=== PATIENT | male | born 1970 | race Two or more races ===

== ENCOUNTER 2019-04-28 15:17 | Inpatient (IN) | payer MEDICAID, OTHER ==
[~2019-04-28] VITALS: Ht 177.8 cm; Wt 96.9 kg
[2019-04-28] MEDS ORDERED: SODIUM CHLORIDE 0.9% 1,000 ML IV ONE (16:15)
[2019-04-28] MEDS ORDERED: HYDROmorphone HCL 2 MG/ML VL IV ONE (16:15)
[2019-04-28] MEDS ORDERED: PROMETHAZINE HCL 25 MG/ML 1ML IV PRN ×2 (16:15→18:00)
[2019-04-28 16:38] LABS: Eosinophils # (auto) 0.1 10 ^3/uL (0-0.8); Hemoglobin 15.9 g/dL (13.5-17.5); Lymphocytes # (auto) 3.6 10 ^3/uL (0.4-5.4); Monocytes # (auto) 1.1 10 ^3/uL (0-1.3); Neutrophils # (auto) 9.7 10 ^3/uL (1.6-8.6); Neutrophils % (auto) 66.7 % (37.0-80.0)
[2019-04-28 16:43] LABS: Basophils # (auto) 0 10 ^3/uL (0-0.2); Basophils % (auto) 0.3 % (0.0-2.0); Eosinophils % (auto) 0.8 % (0.0-7.0); Hematocrit 45.6 % (41.0-53.0); Lymphocytes % (auto) 24.6 % (10.0-50.0); Mean Corpuscular Hemoglobin 31.1 pg (28.0-32.0); Mean Corpuscular Hgb Conc. 34.9 g/dL (32.0-36.0); Mean Corpuscular Volume 89.1 fL (80.0-100.0); Monocytes % (auto) 7.6 % (0.0-12.0); Nucleated Red Blood Cells % 0.2 %; Platelet Count (auto) 186 10^3/uL (140-450); Red Blood Cells 5.12 10^6/uL (4.5-5.90); White Blood Cell 14.5 10^3/uL (4.4-10.8)
[2019-04-28 16:54] LABS: Albumin 3.5 g/dL (3.4-5.0); BUN/Creatinine Ratio 11.1; Calcium 8.2 mg/dL (8.5-10.1); Magnesium 2.1 mg/dL (1.6-2.6); Potassium 3.6 mmol/L (3.5-5.1)
[2019-04-28 16:57] LABS: Bilirubin, Total 0.8 mg/dL (0.2-1.0); Total Protein 8.3 g/dL (6.4-8.2)
[2019-04-28] MEDS ORDERED: cefTRIAXone 1GM/50ML D5W 50 ML IV ONE ×2 (17:15→18:00)
[2019-04-28] MEDS ORDERED: metroNIDAZOLE 500MG/100ML 100 ML IV ONE (17:15)
[2019-04-28] MEDS ORDERED: MORPHINE SULF INJ 2 MG/ML SYRINGE 1ML IV PRN ×3 (18:00)
[2019-04-28] MEDS ORDERED: NITROGLYCERIN 0.4 MG SL TAB SL PRN (18:00)
[2019-04-28] MEDS ORDERED: MILK OF MAGNESIA 30ML SUSP PO PRN (18:00)
[2019-04-28] MEDS: SODIUM CHLORIDE 0.9% 1,000 ML IV SCH (18:11)
[2019-04-28 19:02] LABS: Partial Thromboplastin Time 29.1 sec (23.64-32.05)
[2019-04-28 19:07] LABS: CRP High Sensitivity 8.33 mg/dL (< 0.3)
[2019-04-28] MEDS ORDERED: LIDOCAINE 1% (LOCAL ANESTH.) PF 5ml SDV ONE (19:41)
[2019-04-28] MEDS ORDERED: SUCCINYLCHOLINE CHLORIDE 20 MG/ML 10ML VIAL IV ONE (19:43)
[2019-04-28] MEDS ORDERED: MIDAZOLAM HCL 1MG/1ML-2 ML VIAL ONE (19:44)
[2019-04-28] MEDS ORDERED: PROPOFOL 10 MG/ML 20 ML IV ONE (19:44)
[2019-04-28] MEDS ORDERED: fentaNYL CITRATE 100 MCG/2 ML VL ONE (20:01)
[2019-04-28] MEDS ORDERED: NALOXONE HCL 0.4 MG/ML VIAL IV PRN (20:15)
[2019-04-28] MEDS ORDERED: HYDROmorphone HCL 2 MG/ML VL IV PRN (20:15)
[2019-04-28] MEDS ORDERED: ONDANSETRON HCL 4 MG/2 ML VIAL IV PRN (20:15)
[2019-04-28] MEDS ORDERED: hydrALAZINE HCL 20 MG/ML VL ONE (20:19)
[2019-04-28] MEDS ORDERED: NEOSTIGMINE 1 MG/ML INJ (10mg/10ML VIAL) ONE (21:30)
[2019-04-28] MEDS ORDERED: GLYCOPYRROLATE 0.2 MG/ML 1ML VIAL ONE (21:30)
[2019-04-28] MEDS: HYDROmorphone HCL 2 MG/ML VL IV PRN ×2 (22:05→22:21)
--- NOTE | 2019-04-28 22:46 | NUR ---
Telemetry admit from NATHANIEL ALCALA admitted to Telemetry unit after SBAR received. Patient oriented to Narcisa Menendez, primary RN, unit, room, bed, and unit policies regarding patient care and visiting hours. Patient now on continuous telemetry monitoring, tele box #63 and telemetry reading on arrival to unit is SR 80S. Patient placed on bedside oxygen, weighed by bed scale and encouraged to call if they need something. All questions and concerns addressed, patient verbalized understanding.
[2019-04-28 23:20] VITALS: BP 146/83
[2019-04-29] MEDS: metroNIDAZOLE 500MG/100ML 100 ML IV SCH ×4 (00:07→22:16)
[2019-04-29] MEDS: FAMOTIDINE 20 MG TAB PO SCH ×3 (00:08→22:16)
[2019-04-29] MEDS: SODIUM CHLORIDE 0.9% 1,000 ML IV SCH (00:08)
[2019-04-29] MEDS ORDERED: IBUP800T24 PO (01:21)
--- NOTE | 2019-04-29 02:56 | NUR ---
PATIENT REPORTING PAIN 7/10 PATIENT STATING PAIN 7/10 FOR ABDOMINAL PAIN MORPHINE GIVEN, WILL REASSESS IN 30MIN.
[2019-04-29 05:09] VITALS: BP 156/85
[2019-04-29 06:00] LABS: Basophils # (auto) 0.1 10 ^3/uL (0-0.2); Basophils % (auto) 0.8 % (0.0-2.0); Eosinophils # (auto) 0 10 ^3/uL (0-0.8); Hematocrit 43.3 % (41.0-53.0); Lymphocytes # (auto) 2.1 10 ^3/uL (0.4-5.4); Lymphocytes % (auto) 14.4 % (10.0-50.0); Mean Corpuscular Hgb Conc. 34.6 g/dL (32.0-36.0); Mean Corpuscular Volume 89.5 fL (80.0-100.0); Monocytes # (auto) 1.3 10 ^3/uL (0-1.3); Neutrophils # (auto) 10.8 10 ^3/uL (1.6-8.6); Neutrophils % (auto) 75.8 % (37.0-80.0); Nucleated Red Blood Cells % 0.1 %; Platelet Count (auto) 204 10^3/uL (140-450); Red Blood Cells 4.83 10^6/uL (4.5-5.90); Red Cell Distribution Width 13.1 % (11.8-14.3); White Blood Cell 14.3 10^3/uL (4.4-10.8)
[2019-04-29 08:00] VITALS: BP 155/96
--- NOTE | 2019-04-29 08:27 | NUR ---
Spoke with Dr. Mccormick regarding patients status and gave him patients Deonna's phone number so he can update her on patients condition.
[2019-04-29 09:00] VITALS: BP 155/96
[2019-04-29] MEDS: cefTRIAXone 1GM/50ML D5W 50 ML IV SCH (10:42)
[2019-04-29] MEDS: ENOXAPARIN SOD 40 MG/0.4 ML SYRINGE SC SCH (10:43)
[2019-04-29 13:00] VITALS: BP 160/99
[2019-04-29] MEDS: HYDROmorphone HCL 2 MG/ML VL IV PRN ×2 (13:54→21:31)
--- NOTE | 2019-04-29 14:20 | NUR ---
Dr. Mccormick at bedside to discuss patients plan of care and the findings of the small bowel resection.
[2019-04-29] MEDS ORDERED: ROCURONIUM 10MG/ML 10ML VIAL IV ONE (15:21)
[2019-04-29] MEDS: D5W/SOD CHL 0.45%/KCL 20MEQ 1,000 ML IV SCH (15:36)
[2019-04-29 17:00] VITALS: BP 156/93
--- NOTE | 2019-04-29 20:30 | NUR ---
open note assumed care of pt. upon entering room pt awake and alert on room air no distress noted or expressed. pt updated on plan of care. pt concerns addressed to this point. pt c/o not being repositioned, this nurse asked pt if he was able to move, pt may have been confused that he was not supposed to move, this nurse encouraged pt to reposition via shifting weight on bottom as needed and tolerated, whilst avoiding any movement that may compromise integrity of incision to midsection. this nurse inspecting incision site, abdominal binder in place, dressing is intact, with previous drainage circled on dressing, with no new drainage noted. binder was then placed back and pt assisted to sit at bedside, no complaint of dizziness, pt then ambulated 10 feet and back and stood for 2 minutes unassisted and tolerated well. pt assisted back into bed, dressing remained as previously mentioned. call light in reach. waters in place, secured, below the waist and draining clear yellow. this nurse to round q1hr and prn.
[2019-04-29 22:00] VITALS: BP 133/82
[2019-04-30] MEDS: D5W/SOD CHL 0.45%/KCL 20MEQ 1,000 ML IV SCH (04:20)
[2019-04-30 05:00] VITALS: BP 155/102
[2019-04-30] MEDS: HYDROmorphone HCL 2 MG/ML VL IV PRN (05:51)
[2019-04-30] MEDS: metroNIDAZOLE 500MG/100ML 100 ML IV SCH ×3 (06:06→21:51)
[2019-04-30 06:34] LABS: Basophils # (auto) 0 10 ^3/uL (0-0.2); Basophils % (auto) 0.4 % (0.0-2.0); Eosinophils # (auto) 0 10 ^3/uL (0-0.8); Eosinophils % (auto) 0.3 % (0.0-7.0); Hematocrit 44.7 % (41.0-53.0); Hemoglobin 15.3 g/dL (13.5-17.5); Lymphocytes # (auto) 2.7 10 ^3/uL (0.4-5.4); Lymphocytes % (auto) 23.4 % (10.0-50.0); Mean Corpuscular Hemoglobin 30.7 pg (28.0-32.0); Mean Corpuscular Hgb Conc. 34.2 g/dL (32.0-36.0); Mean Corpuscular Volume 89.9 fL (80.0-100.0); Monocytes # (auto) 0.9 10 ^3/uL (0-1.3); Neutrophils # (auto) 7.9 10 ^3/uL (1.6-8.6); Neutrophils % (auto) 67.9 % (37.0-80.0); Nucleated Red Blood Cells % 0.1 %; Platelet Count (auto) 240 10^3/uL (140-450); Red Blood Cells 4.97 10^6/uL (4.5-5.90); White Blood Cell 11.6 10^3/uL (4.4-10.8)
[2019-04-30 06:52] LABS: Potassium 3.7 mmol/L (3.5-5.1)
[2019-04-30 06:57] LABS: BUN/Creatinine Ratio 13.3; Calcium 8.5 mg/dL (8.5-10.1)
[2019-04-30 08:00] VITALS: BP 128/82
[2019-04-30] MEDS: cefTRIAXone 1GM/50ML D5W 50 ML IV SCH (09:26)
[2019-04-30] MEDS: FAMOTIDINE 20 MG TAB PO SCH ×2 (09:26→21:51)
[2019-04-30] MEDS: ENOXAPARIN SOD 40 MG/0.4 ML SYRINGE SC SCH (09:27)
[2019-04-30 12:00] VITALS: BP 121/92
[2019-04-30] MEDS: SOD CHL 0.9%/ KCL 20MEQ 1,000 ML IV SCH (13:00)
--- NOTE | 2019-04-30 14:54 | NUR ---
NEWBY CATHETER REMOVED PER DR LIMA ORDER
[2019-04-30 17:00] VITALS: BP 140/84
--- NOTE | 2019-04-30 20:15 | NUR ---
open note assumed care of pt. upon entering room pt out of bed ambulating around room. pt on room air no distress noted or expressed. pt denies any pain. pt updated on plan of care, all concerns addressed to this point. pt has binder around abdomen, underneath dressing is intact, with no new drainage noted. pt given incentive spirometer along with hands on instruction on how to use and how often, pt voiced understanding and was able to return demo. pt reports having urinated multiple times since waters removal. pt bed locked, low and 2x rails up. pt call light in reach, encouraged to call as needed. this nurse to round q1hr and prn.
[2019-04-30 22:00] VITALS: BP 136/90
[2019-04-30] MEDS: TEMAZEPAM 15 MG CAP PO PRN (23:44)
[2019-05-01] MEDS: SOD CHL 0.9%/ KCL 20MEQ 1,000 ML IV SCH ×2 (03:01→15:40)
[2019-05-01 05:00] VITALS: BP 147/98
[2019-05-01 05:55] LABS: Basophils # (auto) 0.1 10 ^3/uL (0-0.2); Basophils % (auto) 0.8 % (0.0-2.0); Eosinophils # (auto) 0.2 10 ^3/uL (0-0.8); Eosinophils % (auto) 1.7 % (0.0-7.0); Hematocrit 43.8 % (41.0-53.0); Hemoglobin 15.3 g/dL (13.5-17.5); Lymphocytes # (auto) 2.8 10 ^3/uL (0.4-5.4); Mean Corpuscular Hemoglobin 31.5 pg (28.0-32.0); Mean Corpuscular Hgb Conc. 34.9 g/dL (32.0-36.0); Mean Corpuscular Volume 90.3 fL (80.0-100.0); Monocytes # (auto) 0.9 10 ^3/uL (0-1.3); Monocytes % (auto) 9.3 % (0.0-12.0); Neutrophils # (auto) 5.4 10 ^3/uL (1.6-8.6); Neutrophils % (auto) 58.2 % (37.0-80.0); Platelet Count (auto) 252 10^3/uL (140-450); Red Blood Cells 4.85 10^6/uL (4.5-5.90); Red Cell Distribution Width 12.9 % (11.8-14.3); White Blood Cell 9.3 10^3/uL (4.4-10.8)
[2019-05-01 06:23] LABS: Calcium 8.6 mg/dL (8.5-10.1); Potassium 3.8 mmol/L (3.5-5.1)
[2019-05-01] MEDS: metroNIDAZOLE 500MG/100ML 100 ML IV SCH ×3 (06:26→21:19)
[2019-05-01 08:00] VITALS: BP 133/83
[2019-05-01 08:30] VITALS: BP 133/83
[2019-05-01] MEDS: cefTRIAXone 1GM/50ML D5W 50 ML IV SCH (09:10)
[2019-05-01] MEDS: FAMOTIDINE 20 MG TAB PO SCH ×2 (09:17→21:20)
[2019-05-01] MEDS: ENOXAPARIN SOD 40 MG/0.4 ML SYRINGE SC SCH (09:21)
[2019-05-01 12:00] VITALS: BP 137/87
[2019-05-01 17:00] VITALS: BP 139/96
[2019-05-01] MEDS: TEMAZEPAM 15 MG CAP PO PRN (21:19)
[2019-05-01 22:00] VITALS: BP 146/93
[2019-05-02 05:00] VITALS: BP 130/85
[2019-05-02] MEDS: SOD CHL 0.9%/ KCL 20MEQ 1,000 ML IV SCH ×2 (05:00→18:20)
[2019-05-02] MEDS: metroNIDAZOLE 500MG/100ML 100 ML IV SCH ×3 (05:59→21:39)
[2019-05-02 08:00] VITALS: BP 125/83
[2019-05-02] MEDS: cefTRIAXone 1GM/50ML D5W 50 ML IV SCH (08:13)
[2019-05-02 09:35] VITALS: BP 125/83
[2019-05-02] MEDS: FAMOTIDINE 20 MG TAB PO SCH ×2 (09:45→21:39)
[2019-05-02] MEDS: ENOXAPARIN SOD 40 MG/0.4 ML SYRINGE SC SCH (09:52)
[2019-05-02 12:26] VITALS: BP 138/91
--- NOTE | 2019-05-02 14:19 | NUR ---
assessment Patient is a 48 year old male who is alert and oriented. Patients cognitive abilities are intact. Prior to admission patient lived home with his Rosario and functioned independently. Patient informed me he is able to care for his own ADLs. Per patient he will return home to his prior living arrangements post discharge and his or family will transport him home. Patient informed me he has no PCP that he see's. Patient informed me he has been up ambulating and is doing well. Patient has no safety issues regarding returning home on discharge. Patient has no post discharge needs identified as of now. I informed patient he has a right to speak to a social media senior associate regarding all care. I informed patient he has a right to participate in any and all discharge planning. Patient does not have a POA and advanced directive. I have offered patient information on POA and advanced directives. I informed the patient the advantages and benefits of having an Advanced Directive. Patient verbalized understanding and agreed to discharge plan. Addendum: 05/02/19 at 1426 by Angela GONZALEZ Amended: Links added.
--- NOTE | 2019-05-02 15:09 | NUR ---
Nutrition Assessment Notes Please refer to link for full assessment notes. Est energy needs: 7633-3750 kcals (20-23 kcal/kgBW) Est protein needs: 75-94 gms/day (0.8-1.0 gm/kgBW) Will continue to monitor and reassess prn. Addendum: 05/02/19 at [address] Amended: Links added.
[2019-05-02 17:16] VITALS: BP 128/88
[2019-05-02] MEDS: TEMAZEPAM 15 MG CAP PO PRN (21:51)
[2019-05-02 22:00] VITALS: BP 126/96
--- NOTE | 2019-05-03 01:59 | NUR ---
GAVE REPORT TO NURSE DUARTE TO RESUME CARE OF PATIENT.
[2019-05-03 05:00] VITALS: BP 126/78
[2019-05-03 05:29] LABS: Basophils # (auto) 0.1 10 ^3/uL (0-0.2); Basophils % (auto) 0.5 % (0.0-2.0); Eosinophils # (auto) 0.2 10 ^3/uL (0-0.8); Eosinophils % (auto) 1.6 % (0.0-7.0); Hematocrit 45.1 % (41.0-53.0); Hemoglobin 15.6 g/dL (13.5-17.5); Lymphocytes # (auto) 3.4 10 ^3/uL (0.4-5.4); Lymphocytes % (auto) 35.8 % (10.0-50.0); Mean Corpuscular Hemoglobin 31.2 pg (28.0-32.0); Mean Corpuscular Hgb Conc. 34.6 g/dL (32.0-36.0); Mean Corpuscular Volume 90.2 fL (80.0-100.0); Monocytes # (auto) 0.8 10 ^3/uL (0-1.3); Neutrophils # (auto) 5.1 10 ^3/uL (1.6-8.6); Neutrophils % (auto) 54.1 % (37.0-80.0); Nucleated Red Blood Cells % 0.2 %; Platelet Count (auto) 297 10^3/uL (140-450); Red Cell Distribution Width 12.6 % (11.8-14.3); White Blood Cell 9.5 10^3/uL (4.4-10.8)
[2019-05-03 05:40] LABS: BUN/Creatinine Ratio 17.8; Calcium 8.5 mg/dL (8.5-10.1); Potassium 3.8 mmol/L (3.5-5.1)
[2019-05-03] MEDS: metroNIDAZOLE 500MG/100ML 100 ML IV SCH (05:57)
[2019-05-03] MEDS: SOD CHL 0.9%/ KCL 20MEQ 1,000 ML IV SCH (07:40)
[2019-05-03 08:00] VITALS: BP 120/78
[2019-05-03] MEDS: cefTRIAXone 1GM/50ML D5W 50 ML IV SCH (08:32)
[2019-05-03 08:57] VITALS: BP 120/78
[2019-05-03] MEDS: FAMOTIDINE 20 MG TAB PO SCH (09:04)
[2019-05-03 10:47] VITALS: BP 120/78
--- NOTE | 2019-05-03 11:17 | NUR ---
PATIENT DISCHARGING HOME WITH FAMILY. ALL IV ACCESS DISCONTINUED. TELEMETRY BOX REMOVED AND RETURNED TO TELEMETRY DEPARTMENT LAST NIGHT. ALL DISCHARGE PAPERWORK SIGNED. ALL DISCHARGE INSTRUCTIONS GIVEN.
== END 2019-05-03 12:00 | disposition home or self-care (01) | DRG 710 ==
LOC: ER 15:17 → TELE 15:18 → TELE-WESTW 22:47 → WEST WING 05-03 01:47
PROVIDERS: ADMIT Internal Medicine; ATTEND Internal Medicine
PROC: 0DB80ZZ Excision of Small Intestine, Open Approach (ICD-10-PCS; 2019-04-28)
PROC: 0W9G0ZZ Drainage of Peritoneal Cavity, Open Approach (ICD-10-PCS; principal; 2019-04-28 19:47)
DX: A41.9 Sepsis, unspecified organism (principal); K65.1 Peritoneal abscess; E87.1 Hypo-osmolality and hyponatremia; K57.00 Diverticulitis of small intestine with perforation and abscess without bleeding; R16.0 Hepatomegaly, not elsewhere classified; K76.0 Fatty (change of) liver, not elsewhere classified; D72.829 Elevated white blood cell count, unspecified; K66.0 Peritoneal adhesions (postprocedural) (postinfection); I10 Essential (primary) hypertension
CPT/HCPCS: 36415; 71045; 71046; 74176; 80048; 80053; 82150; 83690; 83735; 84443; 85025; 85610; 85652; 85730; 86141; 86850; 86900; 86901; 93005; 96365; 96368; 96375; G0378; J0330; J0696; J2250; J2704; J3490

== ENCOUNTER 2019-08-11 10:00 | Emergency (ER) | payer SELFPAY ==
[~2019-08-11] VITALS: Ht 177.8 cm; Wt 106.6 kg
[2019-08-11] MEDS ORDERED: FLUORESCEIN SOD 1 MG TEST STRIP LEFTEYE ONE (11:45)
[2019-08-11] MEDS ORDERED: TETRACAINE HCL 0.5% OPTH(EYE) SOLN 4ML LEFTEYE ONE (11:45)
[2019-08-11 12:40] VITALS: BP 158/95
== END 2019-08-11 12:25 | disposition home or self-care (01) ==
LOC: ER 10:00
DX: T15.02XA Foreign body in cornea, left eye, initial encounter (principal); X58.XXXA Exposure to other specified factors, initial encounter; Y93.89 Activity, other specified; Y92.89 Other specified places as the place of occurrence of the external cause; Y99.8 Other external cause status
CPT/HCPCS: 65220

== ENCOUNTER 2022-09-06 18:13 | Emergency (ER) | payer MEDICAID ==
[~2022-09-06] VITALS: Ht 177.8 cm; Wt 95.0 kg
[2022-09-06 18:56] LABS: Basophils # (auto) 0 10 ^3/uL (0-0.2); Basophils % (auto) 0.6 % (0.0-2.0); Eosinophils # (auto) 0.1 10 ^3/uL (0-0.8); Eosinophils % (auto) 1.6 % (0.0-7.0); Hematocrit 46.3 % (41.0-53.0); Hemoglobin 16.2 g/dL (13.5-17.5); Lymphocytes # (auto) 2.3 10 ^3/uL (0.4-5.4); Lymphocytes % (auto) 35.5 % (10.0-50.0); Mean Corpuscular Hemoglobin 31.4 pg (28.0-32.0); Mean Corpuscular Volume 89.8 fL (80.0-100.0); Monocytes # (auto) 0.5 10 ^3/uL (0-1.3); Monocytes % (auto) 8.2 % (0.0-12.0); Neutrophils # (auto) 3.5 10 ^3/uL (1.6-8.6); Neutrophils % (auto) 54.1 % (37.0-80.0); Nucleated Red Blood Cells % 0.1 %; Red Blood Cells 5.16 10^6/uL (4.5-5.90); Red Cell Distribution Width 12.6 % (11.8-14.3); White Blood Cell 6.4 10^3/uL (4.4-10.8)
[2022-09-06 19:10] LABS: INR 1.04 (0.9-1.15); Partial Thromboplastin Time 29.3 SEC (24.5-34.5)
[2022-09-06 19:18] LABS: Albumin 4.3 g/dL (3.4-5.0); Calcium 8.8 mg/dL (8.5-10.1); Magnesium 2.8 mg/dL (1.6-2.6); Potassium 4.3 mmol/L (3.5-5.1)
[2022-09-06 19:35] LABS: BUN/Creatinine Ratio 11.9 (10.0-20.0); Bilirubin, Total 0.4 mg/dL (0.2-1.0)
[2022-09-06 23:31] VITALS: BP 145/83; PULSE 81; RESP 19; TEMP 98.2; O2SAT 94
== END 2022-09-06 23:34 | disposition home or self-care (01) ==
LOC: ER 18:13
DX: R07.89 Other chest pain (principal)
CPT/HCPCS: 36415; 71045; 80053; 83735; 83880; 84484; 85025; 85610; 85730; 93005

== ENCOUNTER 2022-12-15 12:55 | Inpatient (IN) | payer MEDICAID ==
[~2022-12-15] VITALS: Ht 177.8 cm; Wt 98.3 kg
[2022-12-15 13:36] LABS: Basophils # (auto) 0 10 ^3/uL (0-0.2); Basophils % (auto) 0.5 % (0.0-2.0); Eosinophils # (auto) 0.3 10 ^3/uL (0-0.8); Eosinophils % (auto) 2.6 % (0.0-7.0); Hematocrit 45.4 % (41.0-53.0); Hemoglobin 15.7 g/dL (13.5-17.5); Lymphocytes # (auto) 4.4 10 ^3/uL (0.4-5.4); Lymphocytes % (auto) 45.4 % (10.0-50.0); Mean Corpuscular Hemoglobin 30.9 pg (28.0-32.0); Mean Corpuscular Hgb Conc. 34.6 g/dL (32.0-36.0); Mean Corpuscular Volume 89.5 fL (80.0-100.0); Monocytes # (auto) 0.6 10 ^3/uL (0-1.3); Monocytes % (auto) 6.7 % (0.0-12.0); Neutrophils # (auto) 4.3 10 ^3/uL (1.6-8.6); Neutrophils % (auto) 44.8 % (37.0-80.0); Nucleated Red Blood Cells % 0.1 %; Red Blood Cells 5.08 10^6/uL (4.5-5.90); White Blood Cell 9.6 10^3/uL (4.4-10.8)
[2022-12-15 13:53] LABS: Alanine Aminotransferase 39 U/L (7-40); Albumin 4.7 g/dL (3.2-4.8); Alkaline Phosphatase 61 U/L (46-116); Anion Gap 7 (5-15); Aspartate Aminotransferase 23 U/L (13-40); BUN/Creatinine Ratio 9.4 (10.0-20.0); Bilirubin, Total 0.5 mg/dL (0.2-1.0); Blood Urea Nitrogen 10 mg/dL (9-23); Carbon Dioxide 27 mmol/L (20-30); Chloride 102 mmol/L (98-107); Glucose 95 mg/dL (74-106); Potassium 3.8 mmol/L (3.5-5.1); Sodium 136 mmol/L (136-145); Total Protein 7.6 g/dL (5.7-8.2)
[2022-12-15] MEDS ORDERED: ACETAMINOPHEN 325 MG TAB PO PRN (18:15)
[2022-12-15] MEDS ORDERED: MORPHINE SULFATE 4 MG/ML SYR/VIAL IV PRN (18:15)
[2022-12-15] MEDS ORDERED: NITROGLYCERIN 0.4 MG SL TAB SL PRN (18:15)
[2022-12-15] MEDS ORDERED: ONDANSETRON HCL 4 MG/2 ML VIAL IV PRN (18:15)
[2022-12-15 19:24] LABS: INR 1.03 (0.9-1.15); Prothrombin Time 10.8 sec (9.3-11.8)
[2022-12-15] MEDS ORDERED: ENOXAPARIN SOD 100 MG/1 ML SYRINGE SC SCH (22:00)
[2022-12-15 23:27] VITALS: PULSE 79; RESP 18; O2SAT 94
[2022-12-15] MEDS: METOPROLOL TARTRATE 25 MG TAB PO SCH (23:31)
[2022-12-15] MEDS: ATORVASTATIN 20 MG TAB PO SCH (23:32)
[2022-12-16] VITALS (15 sets, daily range): BP systolic 109–133; BP diastolic 60–83; PULSE 56–78; RESP 15–20; TEMP 97.9–98.2; O2SAT 92–96
[2022-12-16 05:35] LABS: Basophils # (auto) 0 10 ^3/uL (0-0.2); Basophils % (auto) 0.5 % (0.0-2.0); Eosinophils # (auto) 0.2 10 ^3/uL (0-0.8); Eosinophils % (auto) 2.4 % (0.0-7.0); Hemoglobin 15.4 g/dL (13.5-17.5); Lymphocytes # (auto) 3.5 10 ^3/uL (0.4-5.4); Mean Corpuscular Hemoglobin 31.6 pg (28.0-32.0); Mean Corpuscular Hgb Conc. 35.1 g/dL (32.0-36.0); Mean Corpuscular Volume 90.1 fL (80.0-100.0); Monocytes # (auto) 0.5 10 ^3/uL (0-1.3); Neutrophils # (auto) 3.6 10 ^3/uL (1.6-8.6); Neutrophils % (auto) 46.1 % (37.0-80.0); Nucleated Red Blood Cells % 0.5 %; Red Blood Cells 4.88 10^6/uL (4.5-5.90); Red Cell Distribution Width 12.8 % (11.8-14.3); White Blood Cell 7.8 10^3/uL (4.4-10.8)
[2022-12-16 05:59] LABS: Alanine Aminotransferase 44 U/L (7-40); Albumin 4.7 g/dL (3.2-4.8); Alkaline Phosphatase 71 U/L (46-116); Anion Gap 9 (5-15); Aspartate Aminotransferase 41 U/L (13-40); BUN/Creatinine Ratio 13.7 (10.0-20.0); Bilirubin, Total 0.4 mg/dL (0.2-1.0); Blood Urea Nitrogen 14 mg/dL (9-23); Calcium 9.4 mg/dL (8.7-10.4); Carbon Dioxide 23 mmol/L (20-30); Chloride 104 mmol/L (98-107); Glucose 154 mg/dL (74-106); Potassium 4.1 mmol/L (3.5-5.1); Sodium 136 mmol/L (136-145); Total Protein 7.3 g/dL (5.7-8.2)
[2022-12-16] MEDS ORDERED: HEPARIN SODIUM (PORCINE) 5000 UNITS/ML 1ML VIAL IV ONE (06:15)
[2022-12-16] MEDS ORDERED: NITROGLYCERIN 50MG/250ML 250 ML IV SCH ×2 (06:15)
[2022-12-16] MEDS ORDERED: HEPARIN DRIP/D5W 100UNITS/ML 250 ML IV SCH ×2 (06:15→15:15)
[2022-12-16] MEDS ORDERED: CLOPIDOGREL 300 MG TAB PO ONE (07:15)
[2022-12-16] MEDS ORDERED: ASPirin 325 MG TAB PO ONE (07:15)
[2022-12-16 07:38] LABS: Alanine Aminotransferase 42 U/L (7-40); Albumin 4.7 g/dL (3.2-4.8); Alkaline Phosphatase 62 U/L (46-116); Anion Gap 8 (5-15); Aspartate Aminotransferase 41 U/L (13-40); BUN/Creatinine Ratio 9.5 (10.0-20.0); Blood Urea Nitrogen 9 mg/dL (9-23); Calcium 9.3 mg/dL (8.5-10.1); Carbon Dioxide 25 mmol/L (20-30); Chloride 105 mmol/L (98-107); Cholesterol 193 mg/dL (< 200); Glucose 118 mg/dL (74-106); HDL Cholesterol 34 mg/dL (40-59); Sodium 138 mmol/L (136-145); Triglycerides 486 mg/dL (< 150)
[2022-12-16 07:39] LABS: Bilirubin, Total 0.4 mg/dL (0.2-1.0); Total Protein 7.6 g/dL (5.7-8.2)
[2022-12-16 08:28] LABS: Magnesium 2.3 mg/dL (1.6-2.6)
[2022-12-16 08:28] LABS: Urine WBC None Seen /hpf (0 - 3)
[2022-12-16 08:43] LABS: Urine Bacteria NONE SEEN /hpf (None Seen); Urine Blood Negative /uL (Negative); Urine Clarity Clear (Clear); Urine Color Colorless (Yellow); Urine Protein, UAD Negative (Negative); Urine Specific Gravity 1.011 (1.001-1.035); Urine Urobilinogen Normal (Negative); Urine pH 6.5 (5.0-8.0)
[2022-12-16] MEDS ORDERED: VERAPAMIL 2.5MG/ML INJ 2ML VIAL IV ONE (09:09)
[2022-12-16] MEDS ORDERED: HEPARIN SODIUM (PORCINE) 5000 UNITS/ML 1ML VIAL ONE (09:09)
[2022-12-16] MEDS ORDERED: ANGIOMAX 250 MG VIAL IV ONE (09:09)
[2022-12-16] MEDS ORDERED: LIDOCAINE 2%HCL (LOCAL ANESTH.) INJ 20ML MDV ONE (09:10)
[2022-12-16] MEDS ORDERED: fentaNYL CITRATE 100 MCG/2 ML VL ONE (09:10)
[2022-12-16] MEDS ORDERED: SODIUM CHL 0.9% 0 ML ONE (09:10)
[2022-12-16] MEDS ORDERED: MIDAZOLAM HCL 2MG/2ML 2ml VIAL (1mg/ml) ONE (09:10)
[2022-12-16] MEDS ORDERED: IODIXANOL 320MG/ML 100ML BTL IV ONE (09:10)
[2022-12-16] MEDS ORDERED: ASPirin 81 mg TAB PO SCH (10:00)
[2022-12-16] MEDS: METOPROLOL TARTRATE 25 MG TAB PO SCH ×2 (10:00→22:02)
[2022-12-16] MEDS ORDERED: SODIUM CHLOR 0.9% PF (SALINE LOCK) 10ML VIAL/SYR IV SCH (14:00)
[2022-12-16] MEDS: SODIUM CHLOR 0.9% PF (SALINE LOCK) 10ML VIAL/SYR IV SCH ×2 (14:00→22:02)
[2022-12-16 14:41] LABS: INR 1.04 (0.9-1.15); Partial Thromboplastin Time 46.4 SEC (24.5-34.5); Prothrombin Time 10.9 sec (9.3-11.8)
[2022-12-16] MEDS: ATORVASTATIN 20 MG TAB PO SCH (22:01)
[2022-12-17 05:00] VITALS: BP 125/89; PULSE 65; RESP 16; TEMP 97.9; O2SAT 95
[2022-12-17] MEDS: SODIUM CHLOR 0.9% PF (SALINE LOCK) 10ML VIAL/SYR IV SCH ×2 (06:06→14:39)
[2022-12-17 06:49] LABS: Basophils # (auto) 0.1 10 ^3/uL (0-0.2); Basophils % (auto) 0.7 % (0.0-2.0); Eosinophils # (auto) 0.3 10 ^3/uL (0-0.8); Eosinophils % (auto) 3.6 % (0.0-7.0); Hemoglobin 15.7 g/dL (13.5-17.5); Lymphocytes # (auto) 2.7 10 ^3/uL (0.4-5.4); Lymphocytes % (auto) 35.4 % (10.0-50.0); Mean Corpuscular Hemoglobin 30.9 pg (28.0-32.0); Mean Corpuscular Hgb Conc. 34.1 g/dL (32.0-36.0); Mean Corpuscular Volume 90.4 fL (80.0-100.0); Monocytes # (auto) 0.6 10 ^3/uL (0-1.3); Monocytes % (auto) 7.3 % (0.0-12.0); Neutrophils # (auto) 4.1 10 ^3/uL (1.6-8.6); Nucleated Red Blood Cells % 0.1 %; Red Blood Cells 5.08 10^6/uL (4.5-5.90); Red Cell Distribution Width 12.9 % (11.8-14.3); White Blood Cell 7.7 10^3/uL (4.4-10.8)
[2022-12-17 06:50] LABS: Chloride 105 mmol/L (98-107); Potassium 4.2 mmol/L (3.5-5.1); Sodium 138 mmol/L (136-145)
[2022-12-17 06:51] LABS: Anion Gap 6 (5-15); Calcium 9.1 mg/dL (8.7-10.4); Carbon Dioxide 27 mmol/L (20-30)
[2022-12-17 06:56] LABS: BUN/Creatinine Ratio 13.3 (10.0-20.0); Blood Urea Nitrogen 14 mg/dL (9-23); Glucose 113 mg/dL (74-106)
[2022-12-17 08:00] VITALS: BP 140/100; PULSE 73; RESP 18; TEMP 98.5; O2SAT 94
[2022-12-17] MEDS: METOPROLOL TARTRATE 25 MG TAB PO SCH (08:25)
[2022-12-17 08:30] VITALS: PULSE 58
[2022-12-17] MEDS ORDERED: CLOPIDOGREL BISULFATE 75 MG TAB PO SCH (10:00)
[2022-12-17] MEDS ORDERED: ASPirin 81 mg TAB PO SCH ×3 (10:00)
[2022-12-17 12:57] VITALS: BP 123/91; PULSE 56; RESP 18; TEMP 98.6; O2SAT 94
[2022-12-17] MEDS ORDERED: METO25TA93 PO (15:11)
[2022-12-17] MEDS ORDERED: CLOP75TA70 PO (15:11)
[2022-12-17 17:00] VITALS: BP 128/88; PULSE 62; RESP 16; TEMP 98.6; O2SAT 95
== END 2022-12-17 18:00 | disposition home or self-care (01) | DRG 190 ==
LOC: ER 12:55 → TELE 18:14 → TELE-WESTW 12-16 15:43
PROVIDERS: ADMIT Nurse Practitioner Family; ATTEND Internal Medicine
PROC: 4A023N7 Measurement of Cardiac Sampling and Pressure, Left Heart, Percutaneous Approach (ICD-10-PCS; principal; 2022-12-16)
PROC: B211YZZ Fluoroscopy of Multiple Coronary Arteries using Other Contrast (ICD-10-PCS; 2022-12-16)
PROC: B215YZZ Fluoroscopy of Left Heart using Other Contrast (ICD-10-PCS; 2022-12-16)
DX: I21.4 Non-ST elevation (NSTEMI) myocardial infarction (principal); I73.9 Peripheral vascular disease, unspecified; E66.9 Obesity, unspecified; Z68.31 Body mass index [BMI] 31.0-31.9, adult; I10 Essential (primary) hypertension; E78.00 Pure hypercholesterolemia, unspecified; R73.03 Prediabetes; Z82.49 Family history of ischemic heart disease and other diseases of the circulatory system; Z90.49 Acquired absence of other specified parts of digestive tract
CPT/HCPCS: 36415; 71045; 80048; 80053; 80061; 81001; 83036; 83735; 83880; 84443; 84484; 85025; 85379; 85610; 85730; 93005; 93306; 93458; 99152; G0378; J2250; Q9967

== ENCOUNTER → 2023-02-21 | Outpatient (CLI) | payer MEDICAID ==
[~2023-02-21] MED LIST: CLOP75TA70 PO; METO25TA93 PO
== END | disposition home or self-care (01) ==
LOC: US 12:29
PROVIDERS: ATTEND Orthopaedic Surgery Sports Medicine
DX: M25.561 Pain in right knee (principal); Z82.49 Family history of ischemic heart disease and other diseases of the circulatory system; Z81.1 Family history of alcohol abuse and dependence
CPT/HCPCS: 20611; C1729; 76942

== ENCOUNTER 2023-07-27 15:19 | Emergency (ER) | payer MEDICAID ==
[~2023-07-27] VITALS: Ht 177.8 cm; Wt 98.6 kg
[2023-07-27 16:14] LABS: Basophils # (auto) 0.1 10 ^3/uL (0-0.2); Basophils % (auto) 0.7 % (0.0-2.0); Eosinophils # (auto) 0.3 10 ^3/uL (0-0.8); Eosinophils % (auto) 2.7 % (0.0-7.0); Hematocrit 49.9 % (41.0-53.0); Hemoglobin 17.4 g/dL (13.5-17.5); Lymphocytes # (auto) 4.4 10 ^3/uL (0.4-5.4); Lymphocytes % (auto) 43.8 % (10.0-50.0); Mean Corpuscular Hemoglobin 31.8 pg (28.0-32.0); Mean Corpuscular Hgb Conc. 34.8 g/dL (32.0-36.0); Mean Corpuscular Volume 91.4 fL (80.0-100.0); Monocytes # (auto) 0.7 10 ^3/uL (0-1.3); Monocytes % (auto) 6.7 % (0.0-12.0); Neutrophils # (auto) 4.6 10 ^3/uL (1.6-8.6); Neutrophils % (auto) 46.1 % (37.0-80.0); Nucleated Red Blood Cells % 0.8 %; Red Blood Cells 5.47 10^6/uL (4.5-5.90); Red Cell Distribution Width 12.9 % (11.8-14.3); White Blood Cell 10.1 10^3/uL (4.4-10.8)
[2023-07-27 16:29] LABS: INR 0.97 (0.9-1.15); Partial Thromboplastin Time 28.7 SEC (24.5-34.5); Prothrombin Time 10.3 sec (9.3-11.8)
[2023-07-27 16:30] LABS: Alanine Aminotransferase 48 U/L (7-40); Albumin 4.7 g/dL (3.2-4.8); Alkaline Phosphatase 68 U/L (46-116); Anion Gap 6 (5-15); BUN/Creatinine Ratio 8.3 (10.0-20.0); Bilirubin, Total 0.5 mg/dL (0.2-1.0); Blood Urea Nitrogen 10 mg/dL (9-23); Calcium 9.3 mg/dL (8.5-10.1); Carbon Dioxide 26 mmol/L (20-30); Chloride 105 mmol/L (98-107); Glucose 108 mg/dL (74-106); Potassium 4.3 mmol/L (3.5-5.1); Sodium 137 mmol/L (136-145); Total Protein 7.6 g/dL (5.7-8.2)
[2023-07-27 16:32] LABS: Aspartate Aminotransferase 29 U/L (13-40)
[2023-07-27] MEDS ORDERED: BACDST PO (17:25)
[2023-07-27] MEDS ORDERED: IBUP-1455 PO (17:25)
[2023-07-27] MEDS ORDERED: ACET500T58 PO (17:25)
[2023-07-27 18:00] VITALS: BP 137/95; PULSE 75; RESP 14; TEMP 98.1; O2SAT 93
[2023-07-27] MEDS: HYDROcodone-ACET 5/325MG TAB PO ONE (18:04)
[2023-07-27] MEDS: TETANUS-DIPTH-ACEL PERTUSSIS 0.5ML SYR Tdap IM ONE (18:04)
== END 2023-07-27 18:12 | disposition home or self-care (01) ==
LOC: ER 15:19
DX: L03.113 Cellulitis of right upper limb (principal); E78.5 Hyperlipidemia, unspecified; E66.9 Obesity, unspecified; Z68.31 Body mass index [BMI] 31.0-31.9, adult; Z79.899 Other long term (current) drug therapy
CPT/HCPCS: 36415; 80053; 85025; 85379; 85610; 85730; 90471; 90715; 93971

== ENCOUNTER 2024-06-10 15:52 | Emergency (ER) | payer MEDICAID ==
[~2024-06-10] VITALS: Ht 170.2 cm; Wt 90.3 kg
[~2024-06-10 15:52] MED LIST changes: +ACET500T58 PO; +BACDST PO; +IBUP-1455 PO
[2024-06-10 16:28] VITALS: TEMP 98.5
--- NOTE | 2024-06-10 16:34 | ED.PDOC ---
History of Present Illness HPI Comments 53 year old male presents to the ED with a chief complaint of hypertension onset yesterday. Patient states he began experiencing LT sided headache, LT eye redness yesterday, checked BP was 150 systolic. Patient also states PCP was going to switch HTN medication from Metoprolol 25 mg to Lisinopril 5 mg but has not made the change. Upon ED arrival, BP was 180/102. PMHx HTN, HLD. Denies chest pain, shortness of breath, nausea, vomiting, diarrhea, abdominal pain, dizziness, fevers. No other symptoms or modifying factors present at this time. Chief Complaint: High Blood Pressure Time Seen by MD: 16:20 Primary Care Provider: ALLI Reviewed Notes: Medications, Allergies Allergies: Coded Allergies: NO KNOWN ALLERGIES (Unverified , 04/28/19) Home Meds Active Scripts Ibuprofen Micronized (Ibuprofen) 800 Mg Tab, 800 MG PO Q8HP PRN, #20 TAB Prov:CARLYN WEBB PAC 07/27/23 Acetaminophen (Acetaminophen) 500 Mg Tab, 500 MG PO Q4HP PRN, #30 TAB Prov:CARLYN WEBB PAC 07/27/23 Sulfamethoxazole W/Trimethopri (Bactrim Ds Tablet) 1 Tab Tb, 1 TAB PO BID for 10 Days, #20 TAB Prov:CARLYN WEBB PAC 07/27/23 Metoprolol Succinate (Metoprolol Succinate Er) 25 Mg Tab, 25 MG PO DAILY, #30 TAB 1 Refill Prov:NADER SIERRA MD 12/17/22 Clopidogrel Bisulfate (CLOPIDOGREL) 75 Mg Tab, 75 MG PO DAILY for 30 Days, #30 TAB Prov:NADER SIERRA MD 12/17/22 Information Source: Patient Mode of Arrival: Ambulatory Severity: Moderate Timing: Days Duration: Since onset Prehospital treatment: None Past Medical History PAST MEDICAL HISTORY: High Lipids, HTN Surgical History: Denies all surgeries Family History Family History: Reviewed,noncontributory to illness Social History Smoker: Non-Smoker Alcohol: Denies ETOH Use Drugs: Denies Drug Use Lives In: Home Constitutional: denies: chills, diaphoresis, fatigue, fever, malaise, sweats, weakness, others EENTM: reports: eye redness (LT); denies: blurred vision, double vision, ear bleeding, ear discharge, ear drainage, ear pain, ear ringing, eye pain, hearing loss, mouth pain, mouth swelling, nasal discharge, nose bleeding, nose congestion, nose pain, photophobia, tearing, throat pain, throat swelling, voice changes, others Respiratory: denies: cough, hemoptysis, orthopnea, SOB at rest, shortness of breath, SOB with excertion, stridor, wheezing, others Cardiovascular: reports: others (hypertenison); denies: chest pain, dizzy spells, diaphoresis, Dyspnea on exertion, edema, irregular heart beat, left arm pain, lightheadedness, palpitations, PND, syncope Gastrointestinal: denies: abdomen distended, abdominal pain, blood streaked bowels, constipated, diarrhea, dysphagia, difficulty swallowing, hematemesis, melena, nausea, poor appetite, poor fluid intake, rectal bleeding, rectal pain, vomiting, others Genitourinary: denies: burning, dysuria, flank pain, frequency, hematuria, incontinence, penile discharge, penile sore, pain, testicle pain, testicle swelling, urgency, others Neurological: reports: headache (LT sided); denies: dizziness, fainting, left sided numbness, left sided weakness, numbness, paresthesia, pre-existing deficit, right sided numbness, right sided weakness, seizure, speech problems, tingling, tremors, weakness, others Musculoskeletal: denies: back pain, gout, joint pain, joint swelling, muscle pain, muscle stiffness, neck pain, others Integumetry: denies: bruises, change in color, change in hair/nails, dryness, laceration, lesions, lumps, rash, wounds, others Allergic/Immunocompromised: denies: Difficulty Healing, Frequent Infections, Hives, Itching, others Hematologic/Lymphatic: denies: anemia, blood clots, easy bleeding, easy bruising, swollen glands, others Endocrine: denies: excessive hunger, excessive sweating, excessive thirst, excessive urination, flushing, intolerance to cold, intolerance to heat, unexplained weight gain, unexplained weight loss, others Psychiatric: denies: anxiety, bipolar disorder, depression, hopeless, panic disorder, schizophrenia, sleepless, suicidal, others All Other Systems: Reviewed and Negative Physical Exam General Appearance: No Apparent Distress, Normal HEENT: Pharynx Normal, TMs Normal, Other (conjuctival erythema ) Neck: Full Range of Motion, Non-Tender, Normal, Normal Inspection Respiratory: Chest Non-Tender, Lungs Clear, No Accessory Muscle Use, No Respiratory Distress, Normal Breath Sounds Cardiovascular: No Edema, No JVD, No Murmur, No Gallop, Normal Peripheral Pulses, Regular Rate/Rhythm Breast Exam: Deferred Gastrointestinal: No Organomegaly, Non Tender, No Pulsatile Mass, Normal Bowel Sounds, Soft Genitalia: Deferred Pelvic: Deferred Rectal: Deferred Extremities: No calf tenderness, Normal capillary refill, Normal inspection, Normal range of motion, Non-tender, No pedal edema Musculoskeletal : Apperance: Normal Neurologic: Alert, change of address clerk II-XII nml as Tested, No Motor Deficits, Normal Affect, Normal Mood, No Sensory Deficits Cerebellar Function: Normal Reflexes: Normal Skin: Dry, Normal Color, Warm Lymphatic: No Adenopathy Was a procedure done? Was a procedure done?: No Differential Dx Considerations may include: ID, hypertensive urgency, primary hypertension. Migraine headache. X-Ray, Labs, Meds, VS Vital Signs Date Time Temp Pulse Resp B/P (MAP) Pulse Ox O2 Delivery O2 Flow Rate FiO2 06/10/24 17:17 133/90 06/10/24 17:17 67 16 133/90 (104) 94 06/10/24 16:28 98.5 72 17 181/102 (128) 95 98.5 06/10/24 16:13 62 Lab Test 06/10/24 16:24 Range/Units White Blood Count 9.7 4.4-10.8 10^3/uL Red Blood Count 5.20 4.5-5.90 10^6/uL Hemoglobin 16.3 13.5-17.5 g/dL Hematocrit 47.0 41.0-53.0 % Mean Corpuscular Volume 90.4 80.0-100.0 fL Mean Corpuscular Hemoglobin 31.3 28.0-32.0 pg Mean Corpuscular Hemoglobin Concent 34.6 32.0-36.0 g/dL Red Cell Distribution Width 13.4 11.8-14.3 % Platelet Count 189 140-450 10^3/uL Mean Platelet Volume 8.8 6.9-10.8 fL Neutrophils (%) (Auto) 54.8 37.0-80.0 % Lymphocytes (%) (Auto) 37.1 10.0-50.0 % Monocytes (%) (Auto) 6.0 0.0-12.0 % Eosinophils (%) (Auto) 1.7 0.0-7.0 % Basophils (%) (Auto) 0.4 0.0-2.0 % Neutrophils # (Auto) 5.3 1.6-8.6 10 ^3/uL Lymphocytes # (Auto) 3.6 0.4-5.4 10 ^3/uL Monocytes # (Auto) 0.6 0-1.3 10 ^3/uL Eosinophils # (Auto) 0.2 0-0.8 10 ^3/uL Basophils # (Auto) 0 0-0.2 10 ^3/uL Nucleated Red Blood Cells 0.1 % Sodium Level 139 136-145 mmol/L Potassium Level 4.0 3.5-5.1 mmol/L Chloride Level 104 98-107 mmol/L Carbon Dioxide Level 26 20-31 mmol/L Anion Gap 9 5-15 Blood Urea Nitrogen 16 9-23 mg/dL Creatinine 0.99 0.700-1.30 mg/dL Glomerular Filtration Rate Calc 90 >90 mL/min BUN/Creatinine Ratio 16.2 10.0-20.0 Serum Glucose 106 74-106 mg/dL Calcium Level 9.7 8.7-10.4 mg/dL Current Medications Medications (Trade) Dose Ordered Sig/Leatha Route Start Time Stop Time Status Last Admin Ketorolac Tromethamine (Toradol Injection) 30 mg ONCE ONCE IM 06/10/24 17:30 06/10/24 17:31 DC 06/10/24 17:24 X-Ray, Labs, Meds, VS Comment Prior to giving clonidine. Patient was blood pressure 1 30s over 90. Clonidine with held. Patient given Toradol for headache. Patient will be discharged home. Advised to follow up with PCP next available appointment. Advised to started taking lisinopril as prescribed. Time of 1ST Reevaluation: 16:50 Reevaluation 1ST: Unchanged Patient Education/Counseling: Diagnosis, Treatment, Prognosis, Need For Follow Up (Follow up with PCP next available appointment. Return to the emergency department if symptoms worsen over the next 24 hours.) Family Education/Counseling: No Family Present Departure 1 Departure Time of Disposition: 18:10 Impression: Primary Impression: Hypertensive urgency Disposition: HOME / SELF CARE / HOMELESS Condition: Fair Discharged With: Self Critical Care Note Critical Care Time?: No Stability Stability form required: No Heart Score Heart Score: Heart Score Response (Comments) Value History N/A 0 EKG N/A 0 Age N/A 0 Risk Factors N/A 0 Troponin N/A 0 Total 0 I personally scribed for ANAM ESCOBAR ([email or web address]) on 06/10/24 at 16:34. Electronically submitted by Kristine Saldana ([email or web address]). ANAM ESCOBAR June 10, 2024 16:34
[2024-06-10 16:53] LABS: Basophils # (auto) 0 10 ^3/uL (0-0.2); Basophils % (auto) 0.4 % (0.0-2.0); Eosinophils # (auto) 0.2 10 ^3/uL (0-0.8); Eosinophils % (auto) 1.7 % (0.0-7.0); Hemoglobin 16.3 g/dL (13.5-17.5); Lymphocytes # (auto) 3.6 10 ^3/uL (0.4-5.4); Lymphocytes % (auto) 37.1 % (10.0-50.0); Mean Corpuscular Hemoglobin 31.3 pg (28.0-32.0); Mean Corpuscular Hgb Conc. 34.6 g/dL (32.0-36.0); Mean Corpuscular Volume 90.4 fL (80.0-100.0); Monocytes # (auto) 0.6 10 ^3/uL (0-1.3); Neutrophils # (auto) 5.3 10 ^3/uL (1.6-8.6); Neutrophils % (auto) 54.8 % (37.0-80.0); Nucleated Red Blood Cells % 0.1 %; Platelet Count (auto) 189 10^3/uL (140-450); Red Cell Distribution Width 13.4 % (11.8-14.3); White Blood Cell 9.7 10^3/uL (4.4-10.8)
[2024-06-10 17:01] LABS: Chloride 104 mmol/L (98-107); Sodium 139 mmol/L (136-145)
[2024-06-10 17:02] LABS: Anion Gap 9 (5-15); Carbon Dioxide 26 mmol/L (20-31)
[2024-06-10 17:03] LABS: Calcium 9.7 mg/dL (8.7-10.4)
[2024-06-10 17:08] LABS: BUN/Creatinine Ratio 16.2 (10.0-20.0); Blood Urea Nitrogen 16 mg/dL (9-23)
[2024-06-10 17:09] LABS: Glucose 106 mg/dL (74-106)
[2024-06-10 17:17] VITALS: BP 133/90; PULSE 67; RESP 16; O2SAT 97
[2024-06-10] MEDS: cloNIDine HCL 0.1 MG TAB PO ONE (17:17)
[2024-06-10] MEDS: KETOROLAC TROMETH 30 MG/ML 1ML VIAL IM ONE (17:24)
--- NOTE | 2024-06-12 13:46 | ECG ---
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
== END 2024-06-10 18:26 | disposition home or self-care (01) ==
LOC: ER 15:52
DX: I16.0 Hypertensive urgency (principal); E78.5 Hyperlipidemia, unspecified; Z79.899 Other long term (current) drug therapy
CPT/HCPCS: 36415; 80048; 85025; 93005; 96372; 99284; J1885

== ENCOUNTER 2024-07-16 09:11 | Outpatient (CLI) | payer MEDICAID ==
[~2024-07-16] VITALS: Ht 177.8 cm; Wt 94.3 kg
== END 2024-07-16 17:00 | disposition home or self-care (01) ==
LOC: Rad HDHVI 09:11
PROVIDERS: ATTEND Internal Medicine Cardiovascular Disease
DX: Z01.810 Encounter for preprocedural cardiovascular examination (principal); R00.1 Bradycardia, unspecified; I25.2 Old myocardial infarction; I10 Essential (primary) hypertension; I21.9 Acute myocardial infarction, unspecified; E11.9 Type 2 diabetes mellitus without complications; E78.2 Mixed hyperlipidemia
CPT/HCPCS: 78452; 93017; A9500; 96374

== ENCOUNTER 2024-07-18 08:03 | Outpatient (CLI) | payer MEDICAID | END 2024-07-18 17:00 | disposition home or self-care (01) | LOC: Rad HDHVI 08:03 | PROVIDERS: ATTEND Internal Medicine Cardiovascular Disease | DX: I08.1 Rheumatic disorders of both mitral and tricuspid valves (principal); I10 Essential (primary) hypertension; R00.0 Tachycardia, unspecified | CPT/HCPCS: 93306 ==

== ENCOUNTER 2024-11-30 18:43 | Emergency (ER) | payer MEDICAID ==
[~2024-11-30] VITALS: Ht 177.8 cm; Wt 74.8 kg
--- NOTE | 2024-11-30 20:03 | DVH ---
EXAM: CT HEAD WITHOUT CONTRAST INDICATION: right side facial numbness and headache TECHNIQUE: CT of the head without intravenous contrast. Radiation Dose : 1. Head: CT Dose: CTDI volume is 63.14 mGy. Dose-length product is 1.71 mGy*cm The dose indicators for CT are the volume Computed Tomography (CT) Dose Index (CTDIvol) and the Dose Length Product (DLP), and are measured in units of mGy and mGy-cm, respectively. These indicators are not patient dose, but values generated from the CT scanner acquisition factors. The report includes radiation exposure data for exposures received during this examination. COMPARISON: None FINDINGS: The cerebral parenchyma appears to be normal configuration and attenuation. The ventricles, cisterns , and sulci appear age-appropriate. There is no evidence for acute territorial infarct, hemorrhage, or mass effect. The orbits are normal. The visualized paranasal sinuses and mastoid air cells are clear. The soft t issues and osseous structures appear within normal limits. IMPRESSION: 1. No acute territorial infarct, intracranial hemorrhage, or mass effect. If clinical symptoms persis t, MRI may be beneficial in further evaluation. Radiation optimization: All CT scans at this facility use at least one of these dose optimization ricardo hniques: automated exposure control mA and/or kV adjustment per patient size (includes targeted exam s where dose is matched to clinical indication) or iterative reconstruction.
--- NOTE | 2024-11-30 20:09 | ED.PDOC ---
History of Present Illness HPI Comments 54 y/o M presents with c/c of right face numbness and headache. Denies any vision or speech changes, dizziness, or further acute symptoms. Chief Complaint: Face pain Time Seen by MD: 18:55 Primary Care Provider: ALLI Reviewed Notes: Nurses Notes, Medications, Allergies Allergies: Coded Allergies: NO KNOWN ALLERGIES (Unverified , 04/28/19) Home Meds Active Scripts Ibuprofen Micronized (Ibuprofen) 800 Mg Tab, 800 MG PO Q8HP PRN, #20 TAB Prov:CARLYN WEBB PAC 07/27/23 Acetaminophen (Acetaminophen) 500 Mg Tab, 500 MG PO Q4HP PRN, #30 TAB Prov:CARLYN WEBB PAC 24 Sulfamethoxazole W/Trimethopri (Bactrim Ds Tablet) 1 Tab Tb, 1 TAB PO BID for 10 Days, #20 TAB Prov:CARLYN WEBB PAC 07/27/23 Metoprolol Succinate (Metoprolol Succinate Er) 25 Mg Tab, 25 MG PO DAILY, #30 TAB 1 Refill Prov:NADER SIERRA MD 12/17/22 Clopidogrel Bisulfate (CLOPIDOGREL) 75 Mg Tab, 75 MG PO DAILY for 30 Days, #30 TAB Prov:NADER SIERRA MD 12/17/22 Information Source: Patient Mode of Arrival: Ambulatory Severity: Moderate Timing: Days Duration: Since onset Past Medical History PAST MEDICAL HISTORY: High Lipids, HTN Surgical History: Denies all surgeries Family History Family History: Reviewed,noncontributory to illness Social History Smoker: Non-Smoker Alcohol: Denies ETOH Use Drugs: Denies Drug Use Lives In: Home All Other Systems: Reviewed and Negative (As per HPI) Physical Exam General Appearance: No Apparent Distress, Normal HEENT: Pharynx Normal, TMs Normal, Other (Right side upper lip swelling) Neck: Full Range of Motion, Non-Tender, Normal, Normal Inspection Respiratory: Chest Non-Tender, Lungs Clear, No Accessory Muscle Use, No Respiratory Distress, Normal Breath Sounds Cardiovascular: No Edema, No JVD, No Murmur, No Gallop, Normal Peripheral Pulses, Regular Rate/Rhythm Breast Exam: Deferred Gastrointestinal: No Organomegaly, Non Tender, No Pulsatile Mass, Normal Bowel Sounds, Soft Genitalia: Deferred Pelvic: Deferred Rectal: Deferred Extremities: No calf tenderness, Normal capillary refill, Normal range of motion, No pedal edema Musculoskeletal : Apperance: Normal Neurologic: Alert, No Motor Deficits, Normal Affect, Normal Mood, No Sensory Deficits Cerebellar Function: Normal Reflexes: Normal Skin: Dry, Normal Color, Warm Lymphatic: No Adenopathy Was a procedure done? Was a procedure done?: No Differential Dx Considerations may include: CVA - ischemic vs hemorrhagic, TIA, viral syndrome, dehydration, among others X-Ray, Labs, Meds, VS Vital Signs Date Time Temp Pulse Resp B/P (MAP) Pulse Ox O2 Delivery O2 Flow Rate FiO2 11/30/24 20:47 70 19 95 Room Air 11/30/24 20:47 98.4 70 19 168/99 (122) 95 98.4 11/30/24 18:45 97.9 70 18 186/105 97 97.9 X-Ray, Labs, Meds, VS Comment Neuro exam grossly benign Advised to rest increase p.o. fluids with electrolytes. Light diet. Monitor for the next 24-48 hours Avoid vigorous activity. Return to the ER for nonstop vomiting, numbness, weakness, slurred speech, lethargy, or any concerning symptoms. Pt indicates understanding and agrees with discharge plan of care Time of 1ST Reevaluation: 19:25 Reevaluation 1ST: Unchanged Reevaluation 2ND: Improved Patient Education/Counseling: Diagnosis, Treatment, Need For Follow Up Family Education/Counseling: No Family Present SEPSIS Sepsis Screen Date sepsis recognized/suspect: Nov 30, 2024 Time Sepsis recognized/suspect: 1846 Recent Procedure: No On Antibiotic Therapy: No Respiratory Rate >20: No Heart Rate >90: No Temp<36 C (96.8 F) or >38.3 C: No SBP <90 or MAP <65 mmHG: No New Acute Mental Status Change: No Is the patient on CPAP, BIPAP,: No Physician Orders Head Without Contrast (11/30/24 19:28) Vital Signs Date Time Temp Pulse Resp B/P (MAP) Pulse Ox O2 Delivery O2 Flow Rate FiO2 11/30/24 20:47 70 19 95 Room Air 11/30/24 20:47 98.4 70 19 168/99 (122) 95 98.4 11/30/24 18:45 97.9 70 18 186/105 97 97.9 Departure 1 Departure Time of Disposition: 20:57 Impression: Primary Impression: Swollen upper lip Disposition: 01 HOME / SELF CARE / HOMELESS Condition: Stable Discharged With: Self Critical Care Note Critical Care Time?: No Stability Stability form required: No Heart Score Heart Score: Heart Score Response (Comments) Value History N/A 0 EKG N/A 0 Age N/A 0 Risk Factors N/A 0 Troponin N/A 0 Total 0 I personally scribed for ER ([email or web address]) on 11/30/24 at 20:08. Electronically submitted by Cruz Vogel ([email or web address]). ER Nov 30, 2024 20:08 CAROLYN GARCIA [facility] Nov 30, 2024 20:57
[2024-11-30 20:47] VITALS: BP 168/99; PULSE 70; RESP 19; TEMP 98.4; O2SAT 95
== END 2024-11-30 21:01 | disposition home or self-care (01) ==
LOC: ER 18:43
DX: R22.9 Localized swelling, mass and lump, unspecified (principal); E78.5 Hyperlipidemia, unspecified; I10 Essential (primary) hypertension; Z79.899 Other long term (current) drug therapy
CPT/HCPCS: 70450